=== PATIENT | male | born 1970 | race Caucasian/White ===

== ENCOUNTER 2018-01-20 11:11 | Emergency (ER) | payer SELFPAY ==
[~2018-01-20] VITALS: Ht 170.2 cm; Wt 74.8 kg
[2018-01-20 11:12] VITALS: BP 154/87
--- NOTE | 2018-01-20 11:12 | NUR ---
PT BIBA TO BED 11
--- NOTE | 2018-01-20 11:30 | NUR ---
PATIENT BIBA FOR ALOC, [employer], INAPPROPRIATE WORDS. 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 UNKNOWN TIME ALTERED, DENIES ETOCH/DRUG USE. PT COMBATIVE WITH MANAGER [employer]EL. DENIES N/V/D; SKIN IS PINK/WARM/DRY; AAOX2, LUNGS CLEAR BL; HR EVEN AND REGULAR; PT DENIES ANY FEVER, CP, SOB, OR COUGH AT THIS TIME; PATIENT STATES PAIN OF 0/10 AT THIS TIME; VSS; PATIENT POSITIONED FOR COMFORT; HOB ELEVATED; BEDRAILS UP X2; BED DOWN. ER MD MADE AWARE OF PT STATUS.
[2018-01-20 12:40] VITALS: BP 154/87
--- NOTE | 2018-01-20 12:40 | NUR ---
Patient discharged with v/s stable. Written and verbal after care instructions given and explained. Patient verbalized understanding. Ambulatory with steady gait. All questions addressed prior to discharge. Advised to follow up with PMD.
== END 2018-01-20 12:40 | disposition home or self-care (01) ==
LOC: MED 11:11
DX: F10.129 Alcohol abuse with intoxication, unspecified (principal)
CPT/HCPCS: 99283